=== PATIENT | female | born 1985 | race Caucasian/White ===

== ENCOUNTER 2018-01-12 10:34 | Inpatient (IN) ==
[2018-01-12] MEDS ORDERED: ONDANSETRON 4 MG/2 ML VIAL IV STA (10:51)
[2018-01-12] MEDS ORDERED: methylPREDNISolone SOD SUC 125 MG/2 ML VIAL IV STA (10:51)
[2018-01-12] MEDS ORDERED: LEVOFLOXACIN INJ 750 MG in PREMIX 1 EACH IV STA (10:51)
[2018-01-12] MEDS ORDERED: ACETAMINOPHEN/CODEINE 120-12 MG/5 ML 12.5 ML UDCUP PO STA (10:59)
[2018-01-12] MEDS ORDERED: ALBUTEROL NEB SOLN 5 MG/ML 20 ML/BOTTLE RESP TX SCH (11:00)
[2018-01-12 11:23] LABS: Basophils % 0.3 % (0.0-0.8); Eosinophils % 0.1 % (0.00-10.9); Hematocrit 25.8 VOL% (35.7-47.0); Hemoglobin 7.8 GM/DL (12.0-16.0); Immature Granulocytes % 0.6 %; Immature Granulocytes Absolute 0.08 #; Lymphocytes # 1.3 10*3/uL (1.4-4.0); Lymphocytes % 10.1 % (21.3-54.2); Mean Corpuscular HGB Conc 30.2 GM/DL (32-36); Mean Corpuscular Hemoglobin 23 PG (27-34); Mean Corpuscular Volume 75.7 FL (87-102); Mean Platelet Volume 10.2 FL (9.6-12.0); Monocytes # 0.5 10*3/uL (0.11-0.8); Monocytes % 3.6 % (1.7-12.7); Neutrophils # 10.5 10*3/uL (1.4-7.4); Neutrophils % 85.3 % (38.7-73.9); Platelet Count 649 T/CUMM (130-400); Red Blood Count 3.41 MC/CUMM (3.8-5.5); White Blood Count 12.4 T/CUMM (4-12)
[2018-01-12 11:46] LABS: Albumin 2.8 G/DL (3.4-5.0); Bilirubin,Total 0.6 MG/DL (0.2-1.0); Calcium 8.7 MG/DL (8.5-10.1); Osmolality,Calculated 273.7 MOS/KG (273-304); Potassium 4.3 MMOL/L (3.5-5.1); Total Protein 7.4 G/DL (6.4-8.3)
[2018-01-12 11:48] LABS: INR 1.1; PT Patient Result 11.4 SECS; Partial Thromboplastin Time 27.2 SECS (0-40)
[2018-01-12 12:23] LABS: Apearance,Urine CLEAR (Clear); Bilirubin,Urine Negative (Negative); Blood, Urine Negative (Negative); Glucose,Urine (UA) Negative (Negative); Ketones,Urine 5 mg/dL (Negative); Mucus,Urine Few /LPF (Occasional); Nitrite,Urine Negative (Negative); Protein,Urine 100 MG/DL; RBC,Urine 1 /HPF (0-4); Squamous Epithelial Cell,Urine Occasional /HPF (0-10); Urine Color Yellow (Yellow); Urine Specific Gravity 1.023 (1.001-1.035); WBC,Urine 3 /HPF (0-6)
[2018-01-12 12:27] LABS: Barbiturates Screen,Urine Negative (Negative); Benzodiazepines Screen,Urine Negative (Negative); Cannabinoid Screen,Urine Negative (Negative); Opiate Screen,Urine Positive (Negative); Phencyclidine Screen,Urine Negative (Negative)
[2018-01-12] MEDS ORDERED: ALBUTEROL 2.5 MG/3 ML NEB RESP TX PRN (13:17)
[2018-01-12] MEDS: LEVOFLOXACIN INJ 750 MG in PREMIX 1 EACH IV SCH (14:28)
[2018-01-12] MEDS ORDERED: hydrALAZINE 20 MG/1 ML VIAL IV PRN (14:37)
[2018-01-12] MEDS: methylPREDNISolone SOD SUC 40 MG/1 ML VIAL IV SCH (17:56)
[2018-01-12] MEDS: ALBUTEROL/IPRATROPIUM 3 ML NEB RESP TX SCH (19:05)
[2018-01-12] MEDS: FERROUS SULFATE 325 MG TABLET PO SCH (21:06)
[2018-01-12] MEDS: guaiFENesin/DM ER 600-30 MG TABLET PO SCH (21:06)
[2018-01-13] MEDS: ALBUTEROL/IPRATROPIUM 3 ML NEB RESP TX SCH ×4 (01:50→19:17)
[2018-01-13] MEDS: methylPREDNISolone SOD SUC 40 MG/1 ML VIAL IV SCH ×3 (03:12→17:12)
[2018-01-13 06:48] LABS: Basophils % 0.1 % (0.0-0.8); Hematocrit 23.6 VOL% (35.7-47.0); Immature Granulocytes Absolute 0.14 #; Lymphocytes # 0.9 10*3/uL (1.4-4.0); Lymphocytes % 6.3 % (21.3-54.2); Mean Corpuscular HGB Conc 29.7 GM/DL (32-36); Mean Corpuscular Hemoglobin 22 PG (27-34); Mean Corpuscular Volume 75.4 FL (87-102); Mean Platelet Volume 10.6 FL (9.6-12.0); Monocytes # 0.5 10*3/uL (0.11-0.8); Monocytes % 3.6 % (1.7-12.7); NRBC # 0.03 10*3/uL; Neutrophils # 12.5 10*3/uL (1.4-7.4); Platelet Count 588 T/CUMM (130-400); Red Blood Count 3.13 MC/CUMM (3.8-5.5); Red Cell Distribution Width 15.3 % (9.3-17.3)
[2018-01-13 06:51] LABS: Osmolality,Calculated 286.1 MOS/KG (273-304); Potassium 4.6 MMOL/L (3.5-5.1)
[2018-01-13 06:56] LABS: Hypochromasia 1+; Platelet Estimate Increased
[2018-01-13 06:57] LABS: Giant Platelets Few; Ovalocytes Slight
[2018-01-13] MEDS ORDERED: SODIUM CHLORIDE 0.9% 1,000 ML IV PRN (07:10)
[2018-01-13] MEDS: guaiFENesin/DM ER 600-30 MG TABLET PO SCH ×2 (09:21→20:50)
[2018-01-13] MEDS: FERROUS SULFATE 325 MG TABLET PO SCH ×2 (09:21→20:49)
[2018-01-13] MEDS: FUROSEMIDE 20 MG/2 ML VIAL IV SCH ×2 (09:23→17:16)
[2018-01-13] MEDS: LEVOFLOXACIN INJ 750 MG in PREMIX 1 EACH IV SCH (09:28)
[2018-01-13] MEDS ORDERED: KETOROLAC 15 MG/1 ML VIAL IV PRN (10:48)
[2018-01-13] MEDS: CARVEDILOL 3.125 MG TABLET PO SCH (17:15)
[2018-01-13] MEDS: LISINOPRIL 5 MG TABLET PO SCH (20:49)
[2018-01-13 21:05] LABS: Hematocrit 30.9 VOL% (35.7-47.0); Hemoglobin 9.4 GM/DL (12.0-16.0)
[2018-01-14] MEDS: ALBUTEROL/IPRATROPIUM 3 ML NEB RESP TX SCH ×2 (01:20→07:40)
[2018-01-14] MEDS: methylPREDNISolone SOD SUC 40 MG/1 ML VIAL IV SCH ×2 (02:10→08:39)
[2018-01-14 05:36] LABS: Basophils % 0.1 % (0.0-0.8); Hematocrit 31.3 VOL% (35.7-47.0); Hemoglobin 9.4 GM/DL (12.0-16.0); Immature Granulocytes % 0.9 %; Immature Granulocytes Absolute 0.18 #; Lymphocytes # 1.3 10*3/uL (1.4-4.0); Lymphocytes % 6.5 % (21.3-54.2); Mean Corpuscular Hemoglobin 24 PG (27-34); Mean Corpuscular Volume 78.4 FL (87-102); Mean Platelet Volume 10.2 FL (9.6-12.0); Monocytes # 0.6 10*3/uL (0.11-0.8); Monocytes % 2.8 % (1.7-12.7); NRBC # 0.05 10*3/uL; Neutrophils # 18.2 10*3/uL (1.4-7.4); Neutrophils % 89.7 % (38.7-73.9); Platelet Count 627 T/CUMM (130-400); Red Blood Count 3.99 MC/CUMM (3.8-5.5); Red Cell Distribution Width 15.6 % (9.3-17.3); White Blood Count 20.3 T/CUMM (4-12)
[2018-01-14 06:06] LABS: Osmolality,Calculated 283.4 MOS/KG (273-304); Potassium 4.3 MMOL/L (3.5-5.1)
[2018-01-14 07:59] VITALS: BP 122/82
[2018-01-14 08:08] LABS: Hypochromasia 2+; Lymphocytes 6 % (20-55); Macrocytosis 2+; Platelet Estimate Increased; Polychromasia Slight; Segmented Neutrophils 91 % (50-85); Target Cells Slight; Total Cells Counted 100
[2018-01-14] MEDS: CARVEDILOL 3.125 MG TABLET PO SCH (08:38)
[2018-01-14] MEDS: FERROUS SULFATE 325 MG TABLET PO SCH (08:38)
[2018-01-14] MEDS: guaiFENesin/DM ER 600-30 MG TABLET PO SCH (08:38)
[2018-01-14] MEDS: LISINOPRIL 5 MG TABLET PO SCH (08:38)
[2018-01-14] MEDS: FUROSEMIDE 20 MG/2 ML VIAL IV SCH (08:38)
[2018-01-14] MEDS: LEVOFLOXACIN INJ 750 MG in PREMIX 1 EACH IV SCH (08:38)
[2018-01-14] MEDS ORDERED: CARVEDILOL 6.25 MG TABLET PO SCH (08:51)
[2018-01-14] MEDS ORDERED: SPIRONOLACTONE 25 MG TABLET PO SCH (09:00)
[2018-01-14] MEDS ORDERED: methylPREDNISolone SOD SUC 40 MG/1 ML VIAL IV SCH ×2 (09:00)
== END 2018-01-14 11:25 | disposition home or self-care (01) | DRG 139 ==
LOC: EDUNIT# → N.ED 10:34 → N.2E 14:00 → N.EDINP 14:15 → N.2E 14:26

== ENCOUNTER 2019-04-23 10:03 | Inpatient (IN) ==
[2019-04-23] MEDS ORDERED: ONDANSETRON 4 MG/2 ML VIAL IV PRN (10:29)
[2019-04-23] MEDS ORDERED: DICYCLOMINE 10 MG CAPSULE PO PRN (10:29)
[2019-04-23] MEDS ORDERED: LORazepam 2 MG/1 ML VIAL IV PRN (10:29)
[2019-04-23] MEDS ORDERED: ACETAMINOPHEN 500 MG TABLET PO PRN (10:29)
[2019-04-23] MEDS ORDERED: rOPINIRole 1 MG TABLET PO PRN (10:29)
[2019-04-23] MEDS ORDERED: LOPERAMIDE 2 MG CAPSULE PO PRN (10:29)
[2019-04-23] MEDS ORDERED: BUPRENORPHINE SL TAB 2 MG TABLET SL SCH (10:30)
[2019-04-23] MEDS ORDERED: cloNIDine 0.1 MG TABLET PO PRN (11:17)
[2019-04-23 12:26] LABS: Basophils % 0.3 % (0.0-0.8); Eosinophils # 0.1 10*3/uL (0.0-0.87); Eosinophils % 0.9 % (0.00-10.9); Hematocrit 39.8 VOL% (35.7-47.0); Hemoglobin 13.1 GM/DL (12.0-16.0); Immature Granulocytes % 0.2 %; Immature Granulocytes Absolute 0.01 #; Lymphocytes # 1.3 10*3/uL (1.4-4.0); Lymphocytes % 19.1 % (21.3-54.2); Mean Corpuscular HGB Conc 32.9 GM/DL (32-36); Mean Platelet Volume 11.7 FL (9.6-12.0); Monocytes % 6.9 % (1.7-12.7); Neutrophils % 72.6 % (38.7-73.9); Platelet Count 182 T/CUMM (130-400); Red Blood Count 4.06 MC/CUMM (3.8-5.5); Red Cell Distribution Width 12.2 % (9.3-17.3); White Blood Count 6.6 T/CUMM (4-12)
[2019-04-23] MEDS ORDERED: ALUM/MAG/SIMETH/LIDO VISC 1:1 30 ML BOTTLE PO ONE (12:27)
[2019-04-23 12:38] LABS: PT Patient Result 11.1 SECS (9.6-12.2)
[2019-04-23 12:51] LABS: Apearance,Urine Slightly Hazy (Clear); Bacteria,Urine Occasional /HPF (Few); Bilirubin,Urine Negative (Negative); Blood, Urine Negative (Negative); Glucose,Urine (UA) Negative (Negative); Hyaline Casts,Urine 1 /LPF (0-3); Ketones,Urine Negative (Negative); Mucus,Urine Few /LPF (Occasional); Nitrite,Urine Negative (Negative); Protein,Urine Negative; RBC,Urine 6 /HPF (0-4); Squamous Epithelial Cell,Urine Few /HPF (0-10); Urine Color Yellow (Yellow); Urine Specific Gravity 1.027 (1.001-1.035); WBC,Urine 1 /HPF (0-6)
[2019-04-23 12:59] LABS: Barbiturates Screen,Urine Negative (Negative); Benzodiazepines Screen,Urine Positive (Negative); Cannabinoid Screen,Urine Positive (Negative); Opiate Screen,Urine Positive (Negative); Phencyclidine Screen,Urine Negative (Negative)
[2019-04-23 13:04] LABS: Alanine Aminotransferase 16 U/L (13-56); Alkaline Phosphatase 38 U/L (45-117); Amylase 25 U/L (25-115); Aspartate Amino Transferase 14 U/L (0-37); Blood Urea Nitrogen 10 MG/DL (7-18); Calcium 9.5 MG/DL (8.5-10.1); Estimated Glom Filtration Rate 118 ML/MIN; Glucose 91 MG/DL (74-106); Total Protein 7.4 G/DL (6.4-8.3)
[2019-04-23] MEDS: PANTOPRAZOLE 20 MG TABLET PO SCH (13:11)
[2019-04-23] MEDS: chlordiazePOXIDE 25 MG CAPSULE PO SCH ×3 (13:12→19:48)
[2019-04-23 13:44] LABS: Troponin I < 0.015 NG/ML (0.00-0.045)
[2019-04-23] MEDS: LISINOPRIL 5 MG TABLET PO SCH (20:17)
[2019-04-23] MEDS: BUPRENORPHINE SL TAB 2 MG TABLET SL SCH (20:18)
[2019-04-23] MEDS: NICOTINE 21 MG/24 HR PATCH TRANSDERM SCH (21:59)
[2019-04-24] MEDS: chlordiazePOXIDE 25 MG CAPSULE PO SCH ×4 (00:16→20:13)
[2019-04-24 05:00] LABS: Risk Ratio 4.04; VLDL CHOLESTEROL 21.6 MG/DL
[2019-04-24 05:02] LABS: Troponin I < 0.015 NG/ML (0.00-0.045)
[2019-04-24] MEDS: BUPRENORPHINE SL TAB 2 MG TABLET SL SCH ×3 (06:09→20:14)
[2019-04-24] MEDS: MULTIVITAMIN (CENTRUM) TABLET PO SCH (09:03)
[2019-04-24] MEDS: PANTOPRAZOLE 20 MG TABLET PO SCH (09:04)
[2019-04-24] MEDS: LISINOPRIL 5 MG TABLET PO SCH ×2 (09:04→20:13)
[2019-04-24] MEDS: FOLIC ACID 1 MG TABLET PO SCH (09:04)
[2019-04-24] MEDS: ASPIRIN EC 81 MG TABLET PO SCH (09:04)
[2019-04-24] MEDS: THIAMINE 100 MG TABLET PO SCH (09:05)
[2019-04-24] MEDS: SPIRONOLACTONE 25 MG TABLET PO SCH (10:13)
[2019-04-24 13:53] LABS: Basophils % 0.6 % (0.0-0.8); Eosinophils # 0.1 10*3/uL (0.0-0.87); Eosinophils % 2.1 % (0.00-10.9); Hematocrit 38.9 VOL% (35.7-47.0); Hemoglobin 12.9 GM/DL (12.0-16.0); Immature Granulocytes % 0.2 %; Immature Granulocytes Absolute 0.01 #; Lymphocytes # 1.9 10*3/uL (1.4-4.0); Lymphocytes % 35.9 % (21.3-54.2); Mean Corpuscular HGB Conc 33.2 GM/DL (32-36); Mean Corpuscular Volume 97.5 FL (87-102); Mean Platelet Volume 11.4 FL (9.6-12.0); Monocytes % 7.6 % (1.7-12.7); Neutrophils % 53.6 % (38.7-73.9); Platelet Count 180 T/CUMM (130-400); Red Blood Count 3.99 MC/CUMM (3.8-5.5); White Blood Count 5.2 T/CUMM (4-12)
[2019-04-24 14:10] LABS: Osmolality,Calculated 285.8 MOS/KG (273-304)
[2019-04-24] MEDS: NICOTINE 21 MG/24 HR PATCH TRANSDERM SCH ×2 (15:50→20:14)
[2019-04-24 17:01] LABS: RBC Wet Mount Rare /HPF; WBC Wet Mount Occasional /HPF
[2019-04-24 17:02] LABS: Bacteria Wet Mount None Seen /HPF; Clue Cells None Seen /HPF (None Seen); Epithelial Cell Wet Mount Rare /HPF (Few/HPF); Trichomonas Wet Mount None Seen /HPF (None Seen); Yeast Wet Mount None Seen /HPF (None Seen)
[2019-04-24] MEDS: HydrOXYzine PAMOATE 25 MG CAPSULE PO PRN (23:13)
[2019-04-24] MEDS: METHOCARBAMOL 750 MG TABLET PO PRN (23:13)
[2019-04-25] MEDS: chlordiazePOXIDE 25 MG CAPSULE PO SCH ×3 (05:16→20:26)
[2019-04-25] MEDS: BUPRENORPHINE SL TAB 2 MG TABLET SL SCH ×2 (05:16→14:11)
[2019-04-25] MEDS: HydrOXYzine PAMOATE 25 MG CAPSULE PO PRN ×2 (09:05→20:26)
[2019-04-25] MEDS: PANTOPRAZOLE 20 MG TABLET PO SCH (09:06)
[2019-04-25] MEDS: FOLIC ACID 1 MG TABLET PO SCH (09:06)
[2019-04-25] MEDS: LISINOPRIL 5 MG TABLET PO SCH ×2 (09:07→20:26)
[2019-04-25] MEDS: ASPIRIN EC 81 MG TABLET PO SCH (09:07)
[2019-04-25] MEDS: THIAMINE 100 MG TABLET PO SCH (09:08)
[2019-04-25] MEDS: MULTIVITAMIN (CENTRUM) TABLET PO SCH (09:08)
[2019-04-25] MEDS: SPIRONOLACTONE 25 MG TABLET PO SCH (09:08)
[2019-04-25] MEDS: NICOTINE 21 MG/24 HR PATCH TRANSDERM SCH ×2 (12:54→20:27)
[2019-04-25] MEDS: METHOCARBAMOL 750 MG TABLET PO PRN (20:27)
[2019-04-26] MEDS: BUPRENORPHINE SL TAB 2 MG TABLET SL SCH (00:58)
[2019-04-26] MEDS: HydrOXYzine PAMOATE 25 MG CAPSULE PO PRN (02:19)
[2019-04-26] MEDS: chlordiazePOXIDE 25 MG CAPSULE PO SCH (04:46)
[2019-04-26 08:12] VITALS: BP 98/67
[2019-04-26] MEDS: NICOTINE 21 MG/24 HR PATCH TRANSDERM SCH (08:38)
[2019-04-26] MEDS: LISINOPRIL 5 MG TABLET PO SCH (08:39)
[2019-04-26] MEDS: THIAMINE 100 MG TABLET PO SCH (08:39)
[2019-04-26] MEDS: PANTOPRAZOLE 20 MG TABLET PO SCH (08:39)
[2019-04-26] MEDS: MULTIVITAMIN (CENTRUM) TABLET PO SCH (08:39)
[2019-04-26] MEDS: FOLIC ACID 1 MG TABLET PO SCH (08:39)
[2019-04-26] MEDS: ASPIRIN EC 81 MG TABLET PO SCH (08:39)
[2019-04-26] MEDS: SPIRONOLACTONE 25 MG TABLET PO SCH (08:39)
== END 2019-04-26 11:34 | disposition home or self-care (01) | DRG 772 ==
LOC: SUATTDRO 10:29 → N.4E 10:32
PROVIDERS: ADMIT Internal Medicine; ATTEND Internal Medicine